=== PATIENT | female | born 1995 | race Caucasian/White ===

== ENCOUNTER 2025-02-10 15:28 | Emergency (ER) | payer SELFPAY ==
[2025-02-10 15:41] VITALS: PULSE 89; TEMP 37.3; O2SAT 96; BMI 39.2
[2025-02-10 15:45] VITALS: BP 124/68
--- NOTE | 2025-02-10 15:56 | ED_ITS ---
HPI - Dental/Oral General Chief complaint: Ear Stated complaint: EARACHE Time Seen by Provider: 02/10/25 15:31 Source: patient Mode of arrival: walk-in History of Present Illness HPI Narrative: 29-year-old female presents to the ER with concerns of right sided jaw pain over the past 2 to 3 days. Patient states she has wisdom teeth that needed extracted but she has not gotten them taken out. She has poor dentition in the right lower rear molars. She notes some mild swelling and increasing pain over the past couple of days with concern of infection either in her teeth or her ear. She denies any fever or nausea or vomiting. She denies chance of . Tried Tylenol at home without relief. Teeth map: 2 1. Onset (ago): day(s) Duration: constant Severity: moderate Relieving factors: nothing Exacerbating factors: nothing Treatment prior to arrival: other (tylenol) Related Data Previous Rx's ?Medication ?Instructions ?Recorded ibuprofen 600 mg tablet 600 mg PO TID PRN pain #30 tabs 02/10/25 penicillin V potassium 500 mg 500 mg PO TID #30 tabs 02/10/25 tablet Allergies Allergy/AdvReac Type Severity Reaction Status Date / Time No Known Drug Allergies Allergy Verified 02/10/25 15:44 Review of Systems 2 ROS0 Constitutional Denies: fever Eyes Denies: change in vision Ears, nose, mouth, and throat Reports: mouth pain; Denies: throat pain or neck pain Cardiovascular Denies: chest pain Respiratory Denies: shortness of breath or cough Gastrointestinal Denies: abdominal pain, nausea or vomiting Genitourinary Denies: painful urination Integumentary/Breast Denies: rash Neurological Denies: headache Psychiatric Denies: anxiety PFSH PFSH Social History Little interest or pleasure in doing things: not at all Feeling down, depressed, or hopeless: not at all Exam Narrative Exam Narrative: Nurses notes reviewed and patient is noted to be non-hypoxic. General: The patient is comfortable, alert and oriented x3, well appearing, non toxic in no apparent distress. Head: Atraumatic and normocephalic. Eyes: Normal conjunctiva, no exudates. ENT: The oropharynx is normal. Right and left TM unremarkable. no tragal or auricle tenderness, canal patent. No pharyngeal erythema, uvular edema, tonsillar exudates, asymmetry or trismus. Uvula is midline. Mouth is normal to inspection With the exception of a pain on percussion of the tooth #31 and 32 and evidence of large dental caries. There is no evidence of facial asymmetry or abscess formation. Minimal swelling lateral gum concerning for early abscess, but not pointing or fluctuant. just tender. Floor of the mouth is soft. No tenderness in the submental or submandibular space. No tongue elevation or deviation. The patient has no evidence of gingivitis, ANUG or other acute pathology. Airway is patent. Neck: The neck demonstrates normal range of motion. No meningeals signs are present. No stridor. No masses or lymphadenopathy noted. Respiratory: No acute distress, lungs are clear to auscultation, no wheezing, rhonchi, or rales noted. No stridor or retractions are noted. Cardiovascular: Regular rate and rhythm Skin: The skin exam shows no evidence of rashes Neuro: Alert and oriented x4, normal speech Lymphatic: No cervical lymphadenopathy Constitutional Vital Signs, click to edit/add: Last Vital Signs Temp 99.1 F 02/10/25 15:41 Pulse 89 02/10/25 15:41 Resp 18 02/10/25 15:41 BP 124/68 02/10/25 15:45 Pulse Ox 96 02/10/25 15:41 O2 Del Method Room Air 02/10/25 15:41 Course Vital Signs Vital signs: Vital Signs Temperature 99.1 F 02/10/25 15:41 Pulse Rate 89 02/10/25 15:41 Respiratory Rate 18 02/10/25 15:41 Pulse Oximetry 96 02/10/25 15:41 Oxygen Delivery Method Room Air 02/10/25 15:41 Temperature 99.1 F 02/10/25 15:41 Pulse Rate 89 02/10/25 15:41 Respiratory Rate 18 02/10/25 15:41 Blood Pressure 124/68 02/10/25 15:45 Pulse Oximetry 96 02/10/25 15:41 Oxygen Delivery Method Room Air 02/10/25 15:41 MDM - Dental/Oral MDM Narrative Medical decision making narrative: Patient presents with history of poor dentition localized dental pain right lower rear molars she does not have a dentist or dental insurance she is given a sheet with local dental providers that we will work with her needs. She may return to the ER if symptoms worsen or new symptoms develop she will be started on penicillin and Motrin for pain we discussed the importance of antibiotic use and prompt dental follow-up topical dental analgesia was also provided. Patient thankful and verbalized treatment plan The patient is to followup with primary care physician in next 2-3 days or to return to the emergency department should any of the signs or symptoms worsen or new symptoms develop. Patient had questions answered. The patient agrees with the following Diagnosis and Treatment plan and the patient will be discharged home. I, Dr Jay, have reviewed the above progress note and course of action in the ER; agree with the above. I have personally gone over history and physical, and discussed disposition and treatment plan with the PA. Discharge Plan Discharge Chief Complaint: Ear Clinical Impression: Toothache, Dental caries Patient Disposition: Home, Self-Care Time of Disposition Decision: 15:58 Condition: Good Mode of Transportation: Private Vehicle Prescriptions / Home Meds: New penicillin V potassium 500 mg tablet 500 mg PO TID Qty: 30 0RF ibuprofen 600 mg tablet 600 mg PO TID PRN (Reason: pain) Qty: 30 0RF Print Language: Jordanian Instructions: Toothache (ED) Additional Instructions: Dental sheet given, please call clinic for appt in 2-3 days Referrals: Celestino Serrano MD [Physician] - As needed Physician,Non-Staff, [Primary Care Provider] - 1 week Discharge Date/Time: 02/10/25 16:14
[2025-02-10] MEDS: PENICILLIN V POTASSIUM 250 MG TABLET 500 MG PO (16:10)
[2025-02-10] MEDS: IBUPROFEN 600 MG TABLET PO (16:10)
[2025-02-10] MEDS: BENZOCAINE 30 ML, lidocaine HCL 15 ML MM (16:11)
== END 2025-02-10 16:14 | disposition home or self-care (01) ==
PROVIDERS: Emergency Provider Emergency Medicine
DX: K02.9 Dental caries, unspecified (principal); K08.89 Other specified disorders of teeth and supporting structures
CPT/HCPCS: 99283